=== PATIENT | female | born 1960 | race Caucasian/White ===

== ENCOUNTER 2018-01-14 01:11 | Emergency (ER) | payer BC, OTHER ==
[~2018-01-14] VITALS: Ht 180.3 cm; Wt 88.5 kg
[2018-01-14 03:31] VITALS: BP 118/78
[2018-01-14] MEDS ORDERED: LIDOCAINE W/ EPINEPHRINE 2% INJ 20ML VIAL IJ ONE (04:00)
[2018-01-14] MEDS ORDERED: cefTRIAXone SOD 1,000 MG VL IM ONE (04:15)
[2018-01-14] MEDS ORDERED: BACITRACIN-POLYMYXIN B TOPICAL OINT UD TOP ONE (04:45)
== END 2018-01-14 04:53 | disposition home or self-care (01) ==
LOC: ER 01:19
DX: S01.81XA Laceration without foreign body of other part of head, initial encounter (principal); W18.00XA Striking against unspecified object with subsequent fall, initial encounter; Y93.01 Activity, walking, marching and hiking; Y92.89 Other specified places as the place of occurrence of the external cause; Y99.8 Other external cause status
CPT/HCPCS: 12013; 96372; 99283; J0696